=== PATIENT | female | born 1960 | race Caucasian/White ===

== ENCOUNTER 2020-12-03 14:18 | Emergency (ER) | payer OTHER, SELFPAY ==
[2020-12-03 15:11] LABS: Absolute Lymphocytes (CBC) 2.8 K/uL (0.7-4.9); Basophils % 0.8 % (0-1.3); Hematocrit 44.5 % (36.0-45.0); Lymphocytes % 29.2 % (15.3-44.8); MPV 8.7 fL (7.6-11.3); RBC Red Blood Cell Count 5.18 M/uL (3.86-4.86)
[2020-12-03 15:13] LABS: Protime INR 0.97
[2020-12-03 15:23] LABS: ALT/SGPT 33 U/L (12-78); AST/SGOT 20 U/L (15-37); Albumin 3.3 g/dL (3.4-5.0); Alkaline Phosphatase 94 U/L (45-117); BUN Blood Urea Nitrogen 15 mg/dL (7-18); Bicarbonate 31 mmol/L (21-32); Bilirubin Direct 0.1 mg/dL (0-0.2); Bilirubin Total 0.3 mg/dL (0.2-1.0); Glucose Level 120 mg/dL (74-106); Lipase 87 U/L (73-393); Magnesium 1.8 mg/dL (1.8-2.4); Potassium 3.8 mmol/L (3.5-5.1); Protein, Total 7.3 g/dL (6.4-8.2); Sodium Level 138 mmol/L (136-145); Troponin (Emerg Dept Use Only) < 0.02 ng/mL (0.0-0.045)
--- NOTE | 2020-12-03 15:29 | RAD REPORT ---
EXAM DESCRIPTION: CT - Ct Stroke Brain Wo Cont - 12/03/2020 2:41 pm CLINICAL HISTORY: VISUAL DISTURBANCES, acute CVA COMPARISON: <Comparisons> TECHNIQUE: Axial 5 millimeter thick images of the head were obtained without IV contrast. All CT scans are performed using dose optimization technique as appropriate and may include automated exposure control or mA/KV adjustment according to patient size. FINDINGS: No intracranial hemorrhage, mass, or cerebral edema. No acute infarction identifiable. No extra-axial fluid collections. Leon matter-white matter differentiation is preserved.Ventricles are normal. No globe or orbital content abnormality seen. Visualized portions of the mastoid air cells, paranasal sinuses, and orbits are unremarkable. Images were only initially available in the exception folder. This precludes generating intermediate report. Images were reviewed and findings telephoned to Dr. Rosas 1436 hours. IMPRESSION: No CT evidence of acute intracranial process.
--- NOTE | 2020-12-03 15:35 | RAD REPORT ---
EXAM DESCRIPTION: RAD - Chest Single View - 12/03/2020 3:04 pm CLINICAL HISTORY: cva, Stroke protocol chest film COMPARISON: None TECHNIQUE: AP portable chest image was obtained 12/03/2020 3:04 pm . FINDINGS: Detail is limited due to portable technique and very large body habitus. No focal lung par enchymal process seen. Heart and vasculature are normal. No measurable pleural effusion and no pneumo thorax. No acute bony abnormality seen. No acute aortic findings suspected. IMPRESSION: No acute cardiopulmonary process.
--- NOTE | 2020-12-03 16:35 | RAD REPORT ---
EXAM DESCRIPTION: MRI - MRA Head Wo Cont - 12/03/2020 4:23 pm CLINICAL HISTORY: VISUAL DISTURBANCES CVA COMPARISON: No comparisons FINDINGS: 3D noncontrast [id number] MR angiography of the [place] was performed. No aneurysm, flow-limiting stenosis or vascular malformation is seen. Forward flow seen in right ness nant vertebral arteries. Distal right vertebral artery is small is a normal variant. The MRA examinat ion did extend to the origin of the internal carotid arteries. There is tortuosity of the bilateral I Az but no dissection, stenosis or suspicious finding. Ophthalmic arteries are too small for MRA resolution. There is no focal ICA abnormality in the expect ed origin of the ophthalmic arteries. The visualized dural venous sinuses appear patent. Right transverse sinus is dominant. IMPRESSION: MRA head examination as detailed above shows no significant or suspicious finding.
--- NOTE | 2020-12-03 17:17 | ER ---
Nurse's Notes [facility] [place] Name: Krsityn Porter Age: 60 yrs Sex: Female : 1960 Arrival Date: 12/03/2020 Time: 14:19 Bed 17 Private MD: Diagnosis: Transient cerebral ischemic attack, unspecified;Transient visual loss, bilateral Presentation: 12/03 14:40 Chief complaint: Patient states: I was in the bathroom and I can't see, like I see but ca1 I can't see the periphery. Now, I can't see my ride side. 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 Denies HX of Stroke. VAN Negative. No slurring of speech. No facial droop. 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 An acute neurological deficit is present. The charge nurse has been notified. The patient has been moved to a treatment area. Pre-hospital glucose is not applicable to this patient. Onset of symptoms was December 03, 2020 at 14:20. 14:40 Acuity: LACI 2 ca1 14:42 Coronavirus screen: Client denies travel out of the [place] in the last 14 days. At this jl7 time, the client does not indicate any symptoms associated with coronavirus-19. Ebola Screen: No symptoms or risks identified at this time. Initial Sepsis Screen: Does the patient meet any 2 criteria? No. Patient's initial sepsis screen is negative. Does the patient have a suspected source of infection? No. Patient's initial sepsis screen is negative. Risk Assessment: Do you want to hurt yourself or someone else? Patient reports no desire to harm self or others. 14:42 Method Of Arrival: Wheelchair jl7 Triage Assessment: 14:40 The onset of the patients symptoms was December 03, 2020 at 14:20. General: Appears in no ca1 apparent distress. comfortable, Behavior is calm, cooperative, appropriate for age. Pain: Denies pain. Neuro: Reports sudden loss of vision. Stroke Activation: Symptom onset < 3 hours Physician: Stroke Attending; Name: ; Notified At: ; Arrived At: Physician: Chief Stroke Resident; Name: ; Notified At: ; Arrived At: Physician: Stroke Resident; Name: ; Notified At: ; Arrived At: Physician: ED Attending; Name: ; Notified At: ; Arrived At: Physician: ED Resident; Name: ; Notified At: ; Arrived At: Historical: - Allergies: 14:41 No Known Allergies; jl7 - PMHx: 14:41 Hypertensive disorder; jl7 - Immunization history:: Client reports receiving the 2nd dose of the Covid vaccine, Client reports receiving the 1st dose of the Covid vaccine, Flu vaccine is not up to date. - Social history:: Smoking status: Patient denies any tobacco usage or history of. Screenin:37 Abuse screen: Denies threats or abuse. Denies injuries from another. Tuberculosis jl7 screening: No symptoms or risk factors identified. Fall Risk IV access (20 points). Total [place] Fall Scale indicates No Risk (0-24 pts). 14:39 Nutritional screening: No deficits noted. jl7 Assessment: 14:39 VAN Scoring: Arm Drift: Patients demonstrates NO arm weakness. Patient is VAN Negative. jl7 The patient has not been NPO before screening. The patient is currently on the following diet: Home The patient is alert, and able to follow commands. The patient does not exhibit slurred or garbled speech. The patient is not exhibiting difficulty speaking. The patient does not exhibit difficulty understanding words. The patient is able to swallow own secretions with no drooling or need for suction. Patient tolerated one teaspoon of water. No drooling, immediate coughing, gurgling, or clearing of the throat was noted. The patient tolerated 90mL of water. No drooling, immediate coughing, gurgling, or clearing of the throat was noted. The patient passed the bedside swallow screening. Oral medications may be given as ordered. Contact Physician for further diet orders. Provider notified of bedside swallow screening results: Luis E Rosas MD. 14:39 General: Appears in no apparent distress. comfortable, Behavior is calm, cooperative. rb3 Pain: Complains of pain in headache Pain currently is 2 out of 10 on a pain scale. Neuro: Level of Consciousness is awake, alert, obeys commands, Oriented to person, place, time, situation, Reports dizziness, headache in left loss peripheral vision in the right eye. Vision improved once arriving at the hospital. Neuro: [place] are equal bilaterally Moves all extremities. Gait is steady, Speech is normal, Facial symmetry appears normal, Pupils are PERRLA. Cardiovascular: Patient's skin is warm and dry. Respiratory: Airway is patent Respiratory effort is even, unlabored, Respiratory pattern is regular, symmetrical. GI: Reports nausea. : No signs and/or symptoms were reported regarding the genitourinary system. Musculoskeletal: Range of motion: intact in all extremities. 15:19 T-PA (Activase) Screening: Contraindications: Rapidly improving condition or minor jl7 deficit: Yes. 15:28 Reassessment: Went to MRI. rb3 16:00 Reassessment: Patient appears in no apparent distress at this time. Patient and/or rb3 family updated on plan of care and expected duration. Pain level reassessed. Patient is alert, oriented x 3, equal unlabored respirations, skin warm/dry/pink. Vital Signs: 14:40 BP 159 / 95; Pulse 96; Resp 16 S; Temp 97.6(TE); Pulse Ox 96% on R/A; Weight 120.2 kg ca1 (R); Height 5 ft. 5 in. (165.10 cm) (R); Pain 0/10; 15:13 BP 157 / 99; Pulse 99; Resp 17; Pulse Ox 95% on R/A; mh5 15:28 rb3 16:28 BP 113 / 72; Pulse 92; Resp 17; Pulse Ox 95% on R/A; mh5 17:28 BP 110 / 72; Pulse 88; Resp 17; Pulse Ox 97% on R/A; rb3 14:40 Body Mass Index 44.10 (120.20 kg, 165.10 cm) ca1 15:28 Went to MRI rb3 NIH Stroke Scale Scores: 14:39 NIHSS Score: 1 jl7 ED Course: 14:19 Patient arrived in ED. as 14:23 Luis E Rosas MD is Attending Physician. tw4 14:25 Shasta Painter, RN is Primary Nurse. rb3 14:37 Patient has correct armband on for positive identification. Bed in low position. Call jl7 light in reach. Side rails up X 1. quality assurance monitor body on. Pulse ox on. NIBP on. 14:37 EKG done, by ED staff, reviewed by Luis E Rosas MD. jl7 14:40 CT Stroke Brain w/o Contrast In Process Unspecified. EDMS 14:40 Missed attempt(s): 20 gauge in left antecubital area. Bleeding controlled, band aid rb3 applied, catheter tip intact. 14:42 Arm band placed on right wrist. jl7 14:43 Missed attempt(s): 22 gauge in left forearm. Bleeding controlled, band aid applied, rb3 catheter tip intact. 14:47 Triage completed. ca1 15:04 Stroke CXR 1 View In Process Unspecified. EDMS 15:10 CBC with Automated Diff Sent. mh5 15:10 Liver (Hepatic) Function Sent. mh5 15:10 Basic Metabolic Panel Sent. mh5 15:10 Basic Metabolic Panel Sent. mh5 15:10 CBC with Diff Sent. mh5 15:10 Hepatic Function Sent. mh5 15:11 Lipase Sent. mh5 15:11 Magnesium Sent. mh5 15:11 Protime (+inr) Sent. mh5 15:11 Ptt, Activated Sent. mh5 15:11 Troponin (emerg Dept Use Only) Sent. mh5 15:12 Placed in gown. Side rails up X2. Adult w/ patient. Warm blanket given. mh5 15:12 Missed attempt(s): 22 gauge in left forearm. mh5 15:19 Inserted saline lock: 22 gauge in left forearm, using aseptic technique. jl7 16:23 MRA Head Wo Cont In Process Unspecified. EDMS 17:16 Cezar Christiansen MD is Referral Physician. tw4 17:29 No provider procedures requiring assistance completed. IV discontinued, intact, rb3 bleeding controlled, No redness/swelling at site. Pressure dressing applied. Administered Medications: 17:20 Drug: Aspirin Chewable Tablet 324 mg Route: PO; rb3 17:28 Follow up: Response: Medication administered at discharge. rb3 17:20 Drug: PlaVIX (clopidogrel) 75 mg Route: PO; rb3 17:28 Follow up: Response: Medication administered at discharge. rb3 17:20 Drug: foLIC Acid 1 mg Route: PO; rb3 17:27 Follow up: Response: Medication administered at discharge. rb3 Point of Care Testing: Blood Glucose: 15:04 Blood Glucose: 152 mg/dL; rb3 Ranges: Outcome: 17:17 Discharge ordered by . tw4 17:29 Discharged to home ambulatory, with significant other. rb3 17:29 Condition: stable 17:29 Discharge instructions given to patient, Instructed on discharge instructions, follow up and referral plans. medication usage, Demonstrated understanding of instructions, follow-up care, medications, Prescriptions given X 1. 17:29 Patient left the ED. rb3 NIH Stroke Scale - NIH Stroke Score Date: 12/03/2020 Time: 14:39 Total Score = 1 1a. Level of Consciousness (LOC) - 0(Alert) 1b. Level of Consciousness (LOC) (Month \T\ Age) - 0(Both) 1c. LOC Commands (Open \T\ Closes Eyes/Forecast Analyst) - 0(Both) 2. Best Gaze (Lateral Gaze Paresis) - 0(Normal) 3. Visual Field Loss - 1(Partial hemianopia) 4. Facial Palsy - 0(Normal) 5a. Left Arm: Motor (10-second hold) - 0(No drift) 5b. Right Arm: Motor (10-second hold) - 0(No drift) 6a. Left Leg: Motor (5-second hold - always test supine) - 0(No drift) 6b. Right Leg: Motor (5-second hold - always test supine) - 0(No drift) 7. Limb Ataxia (finger/nose \T\ heel/rivera - test with eyes open) - 0(Absent) 8. Sensory Loss (pinprick arms/legs/face) - 0(Normal) 9. Best Language: Aphasia (description/naming/reading) - 0(No aphasia) 10. Dysarthria (speech clarity - read or repeat words) - 0(Normal) 11. Extinction and Inattention (visual/tactile/auditory/spatial/personal) - 0(No abnormality) Initials: jl7 Signatures: Dispatcher [employer] EDMS Abigail Lynn Maria 5 Miguel A Barber RN RN jl7 Luis E Rosas MD MD tw4 Norma Tafoya RN RN [facility] Shasta Painter RN RN rb3 Corrections: (The following items were deleted from the chart) 14:41 14:37 The patient has not been NPO before screening. The patient is currently jl7 on the following diet: home The patient is alert, able to follow commands. The patient does not exhibit slurred or garbled speech The patient is not exhibiting difficulty speaking. The patient does not exhibit difficulty understanding words. The patient is able to swallow own secretions with no drooling or need for suction. Patient tolerated one teaspoon of water. No drooling, immediate coughing, gurgling, or clearing of the throat was noted. The patient tolerated 90mL of water. No drooling, immediate coughing, gurgling, or clearing of the throat was noted. The patient passed the bedside swallow screening. Oral medications may be given as ordered. Contact Physician for further diet orders. Provider notified of bedside swallow screening results: Luis E Rosas MD [facility] 14:37 Nutritional screening: No deficits noted. [place] [id number] 14:37 NIHSS Score: 1 [place] [id number] 14 14:41 PMHx: Hypothyroidism; [place] [address] 16:23 16:02 In radiology for Brain Wo Cont+MRI.RAD.BRZ. EDMS EDMS
--- NOTE | 2020-12-03 17:17 | EDPHYS ---
Physician Documentation [facility] Name: Kristyn Porter Age: 60 yrs Sex: Female : 1960 Arrival Date: 12/03/2020 Time: 14:19 Bed 17 Private MD: ED Physician Luis E Rosas HPI: 12/03 15:17 This 60 yrs old Female presents to ER via Wheelchair with complaints of Loss tw4 Of Vision. 15:17 The patient's problem is reported as visual difficulty, decreased visual field. Onset: tw4 The symptoms/episode began/occurred just prior to arrival, today. Duration: This was a single incident. Context: the episode(s) was witnessed, by family, , symptoms became apparent upon waking, occurred at home, occurred while the patient was standing. The symptoms are alleviated by nothing. The symptoms are aggravated by nothing. Severity of symptoms: At their worst the symptoms were moderate in the emergency department the symptoms have improved markedly. Patient's baseline: Neuro: alert and fully oriented, Motor: no deficits, Ambulation: walks without assistance, Speech: normal. The patient has not experienced similar symptoms in the past. Historical: - Allergies: 14:41 No Known Allergies; jl7 - PMHx: 14:41 Hypertensive disorder; jl7 - Immunization history:: Client reports receiving the 2nd dose of the Covid vaccine, Client reports receiving the 1st dose of the Covid vaccine, Flu vaccine is not up to date. - Social history:: Smoking status: Patient denies any tobacco usage or history of. ROS: 15:17 Constitutional: Negative for fever, chills, and weight loss. tw4 15:17 Neck: Negative for injury, pain, and swelling, Cardiovascular: Negative for chest pain, palpitations, and edema, Respiratory: Negative for shortness of breath, cough, wheezing, and pleuritic chest pain, Abdomen/GI: Negative for abdominal pain, nausea, vomiting, diarrhea, and constipation, Back: Negative for injury and pain, MS/Extremity: Negative for injury and deformity, Skin: Negative for injury, rash, and discoloration. 15:17 Eyes: Positive for vision loss. Exam: 15:17 Radiologist reports: no acute findings tw4 15:17 Constitutional: This is a well developed, well nourished patient who is awake, alert, and in no acute distress. Head/Face: Normocephalic, atraumatic. Chest/axilla: Normal chest wall appearance and motion. Nontender with no deformity. No lesions are appreciated. Cardiovascular: Regular rate and rhythm with a normal S1 and S2. No gallops, murmurs, or rubs. Normal PMI, no JVD. No pulse deficits. Respiratory: Lungs have equal breath sounds bilaterally, clear to auscultation and percussion. No rales, rhonchi or wheezes noted. No increased work of breathing, no retractions or nasal flaring. Abdomen/GI: Soft, non-tender, with normal bowel sounds. No distension or tympany. No guarding or rebound. No evidence of tenderness throughout. Back: No spinal tenderness. No costovertebral tenderness. Full range of motion. Skin: Warm, dry with normal turgor. Normal color with no rashes, no lesions, and no evidence of cellulitis. MS/ Extremity: Pulses equal, no cyanosis. Neurovascular intact. Full, normal range of motion. Vital Signs: 14:40 BP 159 / 95; Pulse 96; Resp 16 S; Temp 97.6(TE); Pulse Ox 96% on R/A; Weight 120.2 kg ca1 (R); Height 5 ft. 5 in. (165.10 cm) (R); Pain 0/10; 15:13 BP 157 / 99; Pulse 99; Resp 17; Pulse Ox 95% on R/A; mh5 15:28 rb3 16:28 BP 113 / 72; Pulse 92; Resp 17; Pulse Ox 95% on R/A; mh5 17:28 BP 110 / 72; Pulse 88; Resp 17; Pulse Ox 97% on R/A; rb3 14:40 Body Mass Index 44.10 (120.20 kg, 165.10 cm) ca1 15:28 Went to MRI rb3 NIH Stroke Scale Scores: 14:39 NIHSS Score: 1 jl7 MDM: 17:17 Patient medically screened. tw4 12/04 07:21 Differential diagnosis: CVA, TIA. Data reviewed: vital signs, nurses notes. Data tw4 interpreted: Pulse oximetry: Interpretation: normal. Counseling: I had a detailed discussion with the patient and/or guardian regarding: the historical points, exam findings, and any diagnostic results supporting the discharge/admit diagnosis. Special discussion: I discussed with the patient/guardian in detail that at this point there is no indication for admission to the hospital. It is understood, however, that if the symptoms persist or worsen the patient needs to return immediately for re-evaluation. 12/03 14:38 Order name: Basic Metabolic Panel 12/03 14:38 Order name: CBC with Diff 12/03 14:38 Order name: Hepatic Function 12/03 14:38 Order name: Lipase; Complete Time: 16:49 12/03 14:38 Order name: Magnesium; Complete Time: 16:49 12/03 16:50 Interpretation: Within normal limits: MG 1.8. 12/03 14:38 Order name: Protime (+inr); Complete Time: 16:49 12/03 16:50 Interpretation: Within normal limits: PT 11.2; INR <p>0.97</p>. 12/03 14:38 Order name: Ptt, Activated; Complete Time: 16:49 12/03 16:50 Interpretation: Within normal limits: PTT 25.9. 12/03 14:38 Order name: Troponin (emerg Dept Use Only); Complete Time: 16:49 12/03 16:50 Interpretation: Within normal limits: TROPED < 0.02. 12/03 14:38 Order name: CT Stroke Brain w/o Contrast; Complete Time: 16:49 12/03 14:38 Order name: Stroke CXR 1 View; Complete Time: 16:49 12/03 14:38 Order name: Basic Metabolic Panel; Complete Time: 16:49 ED12/03 16:50 Interpretation: Normal except: GLUC 120; GFR 67. 12/03 14:38 Order name: CBC with Automated Diff; Complete Time: 16:49 12/03 16:50 Interpretation: Normal except: RBC 5.18. 12/03 14:38 Order name: Liver (Hepatic) Function; Complete Time: 16:49 12/03 16:50 Interpretation: Abnormal: ALB 3.3; GLOB 4.0. 12/03 15:17 Order name: Glucose, Ancillary Testing; Complete Time: 16:49 12/03 14:38 Order name: EKG; Complete Time: 14:39 12/03 14:38 Order name: Accucheck; Complete Time: 15:10 12/03 14:38 Order name: Cardiac monitoring; Complete Time: 14:56 12/03 14:38 Order name: EKG - Nurse/Tech; Complete Time: 14:56 12/03 14:38 Order name: IV Saline Lock; Complete Time: 15:19 12/03 14:38 Order name: Labs collected and sent; Complete Time: 14:56 12/03 14:38 Order name: NPO; Complete Time: 14:56 12/03 14:38 Order name: O2 Per Protocol; Complete Time: 14:56 12/03 14:38 Order name: O2 Sat Monitoring; Complete Time: 14:56 12/03 14:38 Order name: Stroke Swallow Screen; Complete Time: 14:56 12/03 16:23 Order name: MRA Head Wo Cont; Complete Time: 16:49 EDMS EC/10 15:17 Rate is 85 beats/min. Rhythm is regular. QRS [place] is Normal. RI interval is normal. QRS tw4 interval is normal. QT interval is normal. No Q waves. T waves are Normal. No ST changes noted. Clinical impression: Normal ECG. Interpreted by me. Reviewed by me. Administered Medications: 17:20 Drug: Aspirin Chewable Tablet 324 mg Route: PO; rb3 17:28 Follow up: Response: Medication administered at discharge. rb3 17:20 Drug: PlaVIX (clopidogrel) 75 mg Route: PO; rb3 17:28 Follow up: Response: Medication administered at discharge. rb3 17:20 Drug: foLIC Acid 1 mg Route: PO; rb3 17:27 Follow up: Response: Medication administered at discharge. rb3 Point of Care Testing: Blood Glucose: 15:04 Blood Glucose: 152 mg/dL; rb3 Ranges: Critical Glucose Levels:Adult <50 mg/dl or >400 mg/dl <40 mg/dl or >180 mg/dl Disposition Summary: 12/03/20 17:17 Discharge Ordered Location: Home tw4 Problem: new tw4 Symptoms: have improved tw4 Condition: Stable tw4 Diagnosis - Transient cerebral ischemic attack, unspecified tw4 - Transient visual loss, bilateral tw4 Followup: tw4 - With: Cezar Christiansen MD - When: 1 - 2 days - Reason: Recheck today's complaints, Continuance of care, Re-evaluation by your physician Discharge Instructions: - Discharge Summary Sheet tw4 - Visual Disturbances tw4 - Amaurosis Fugax tw4 - Transient Ischemic Attack, [id number] tw4 - Aspirin and Your Heart tw4 Forms: - Medication Reconciliation Form tw4 - Thank You Letter tw4 - Antibiotic Education tw4 - Prescription Opioid Use tw4 Prescriptions: - Plavix 75 mg Oral Tablet - take 1 tablet by ORAL route once daily; 20 tablet; Refills: 0, Product tw4 Selection Permitted NIH Stroke Scale - NIH Stroke Score Date: 12/03/2020 Time: 14:39 Total Score = 1 1a. Level of Consciousness (LOC) - 0(Alert) 1b. Level of Consciousness (LOC) (Month \T\ Age) - 0(Both) 1c. LOC Commands (Open \T\ Closes Eyes/Apartment Leasing Consultant) - 0(Both) 2. Best Gaze (Lateral Gaze Paresis) - 0(Normal) 3. Visual Field Loss - 1(Partial hemianopia) 4. Facial Palsy - 0(Normal) 5a. Left Arm: Motor (10-second hold) - 0(No drift) 5b. Right Arm: Motor (10-second hold) - 0(No drift) 6a. Left Leg: Motor (5-second hold - always test supine) - 0(No drift) 6b. Right Leg: Motor (5-second hold - always test supine) - 0(No drift) 7. Limb Ataxia (finger/nose \T\ heel/rivera - test with eyes open) - 0(Absent) 8. Sensory Loss (pinprick arms/legs/face) - 0(Normal) 9. Best Language: Aphasia (description/naming/reading) - 0(No aphasia) 10. Dysarthria (speech clarity - read or repeat words) - 0(Normal) 11. Extinction and Inattention (visual/tactile/auditory/spatial/personal) - 0(No abnormality) Initials: jl7 Signatures: Dispatcher [employer] EDMiguel A Whittington RN RN jl7 Luis E Rosas MD MD tw4 Norma Tafoya RN RN ca1 Shasta Painter RN RN rb3 Corrections: (The following items were deleted from the chart) 14:42 14:41 PMHx: Hypothyroidism; jl7 jl7 16:23 14:59 Brain Wo Cont+MRI.RAD.BRZ ordered. EDMS EDMS
[2020-12-03 17:36] VITALS: TEMP 97.6
[2020-12-03] MEDS ORDERED: ASPIRIN 81 MG CHEWABLE TABLET ONE (17:37)
[2020-12-03] MEDS ORDERED: CLOPIDOGREL 75 MG TABLET ONE (17:38)
[2020-12-03] MEDS ORDERED: FOLIC ACID 1 MG TABLET ONE (17:38)
[2020-12-03 17:41] VITALS: BP 110/72; O2SAT 97
--- NOTE | 2020-12-05 16:11 | EKG ---
Test Date: 2020-12-03 Test Time: 14:36:09 [employer] [place]: TIERRA MEASUREMENT RESULTS: Intervals: Rate: 85 NV: 158 QRSD: 78 QT: 330 QTc: 392 [place]: P: 42 NV: 158 QRS: 12 T: 19 INTERPRETIVE STATEMENTS: Normal sinus rhythm Normal ECG Compared to ECG 01/07/2009 12:51:03 Sinus bradycardia no longer present T-wave abnormality no longer present Electronically Signed On 12-05-20 16:05:14 CDT by Arden Wen
== END 2020-12-03 17:29 | disposition home or self-care (01) ==
LOC: ER 14:18
DX: G45.9 Transient cerebral ischemic attack, unspecified (principal); I10 Essential (primary) hypertension; R29.701 NIHSS score 1
CPT/HCPCS: 36415; 70450; 70544; 71045; 80048; 80076; 82947; 83690; 83735; 84484; 85025; 85610; 85730; 93005; 99285

== ENCOUNTER → 2023-07-13 | Emergency (ER) | payer OTHER ==
[~2023-07-13] MED LIST: DIPHENHYDRAMINE 50 MG/ML VIAL ONE; METOCLOPRAMIDE 10 MG/2mL INJ ONE; NA CHLORIDE 0.9% 500 ML ONE
[2023-07-13 23:46] LABS: Absolute Lymphocytes (CBC) 2.8 K/uL (0.7-4.9); Hematocrit 38.9 % (36.0-45.0); Lymphocytes % 27.9 % (15.3-44.8); Platelets 237 thou/uL (152-406); RBC Red Blood Cell Count 4.52 M/uL (3.86-4.86)
[2023-07-14 00:05] LABS: Albumin 3.3 g/dL (3.4-5.0); Bilirubin Total 0.3 mg/dL (0.2-1.0); Potassium 4.1 mEq/L (3.5-5.1); Troponin High Sensitivity 5.9 pg/mL (<58.9)
--- NOTE | 2023-07-14 00:27 | EDPHYS ---
Physician Documentation [facility] Name: Kristyn Porter Age: 62 yrs Sex: Female : 1960 Arrival Date: 07/13/2023 Time: 22:47 Bed 14 Private MD: ED Physician Omer Chin HPI: 07/13 23:11 This 62 yrs old Female presents to ER via Ambulatory with complaints of High ec2 Blood Pressure. 23:11 Patient arrives today for evaluation of elevated blood pressure. Patient reports that ec2 she has noted elevated blood pressures with systolics of 150s to 180s. Patient reports some occasional headaches. Denies any chest pain, denies difficulty breathing, denies any other concerns. Patient with history of hypertension, on losartan.. Historical: - Allergies: 23:00 surgical tape; tl4 - Home Meds: 23:01 Omeprazole Oral [Active]; progesterone (bulk) [Active]; losartan oral [Active]; tl4 meloxicam oral [Active]; Estradiol Oral [Active]; clopidogrel 75 mg oral tablet 1 tab daily [Active]; metoprolol succinate 50 mg oral Tablet, Extended Release 24 hr 1 tab daily [Active]; metformin 500 mg oral Tablet, Extended Release 24 hr 1 tab daily [Active]; aspirin 81 mg Oral tablet,chewable 1 tab daily [Active]; melatonin 10 mg Oral tablet 1 tab every day at bedtime [Active]; folic acid 800 mcg Oral tablet 1 tab daily [Active]; - PMHx: 23:00 Hypertensive disorder; tl4 23:01 Diabetes mellitus; Atrial fibrillation; tl4 - Immunization history:: Adult Immunizations unknown. - Social history:: Smoking status: Patient denies any tobacco usage or history of. ROS: 23:11 Constitutional: as per hpi ec2 Exam: 23:11 Constitutional: GEN: NAD Head: atraumatic Eyes: EOMI Ears: External ears are ec2 normal. CV: regular rate LUNGS: no respiratory distress ABD: non-distended SKIN: no evidence of rashes MSK: no evidence of trauma NEURO: moves all extremities equally, cranial nerves II through XII intact, strength intact, no pronator drift, normal [id number]. Vital Signs: 22:55 BP 191 / 102; Pulse 74; Resp 16; Temp 97.7; Pulse Ox 100% ; Weight 111.13 kg; Height 5 tl4 ft. 6 in. ; Pain 4/10; 23:38 BP 163 / 82; Pain 0/10; tm6 07/14 00:03 BP 166 / 93; Pulse 70; Pulse Ox 100% on R/A; tm6 00:08 BP 149 / 75; Pulse 66; ec2 00:43 BP 149 / 75; Pulse 68; Resp 20; Temp 98(TE); Pulse Ox 98% on R/A; Pain 0/10; tm6 07/13 22:55 Body Mass Index 39.54 (111.13 kg, 167.64 cm) tl4 07/13 22:55 Pain Scale: Adult tl4 23:38 Pain Scale: Adult tm6 00:43 Pain Scale: Adult tm6 MDM: 07/13 23:10 Patient medically screened. ec2 23:11 Data reviewed: vital signs, nurses notes. ED course: Patient arrives today for ec2 evaluation of headache and elevated blood pressure. Semination remarkable for neuro intact individual is otherwise in no acute distress. Will obtain lab work and CT imaging. Currently evaluating for intracranial mass, organ dysfunction, ACS.. 23:25 ED course: EKG independently reviewed and interpreted by me, shows normal sinus rhythm, ec2 rate of 73, no acute ST segment elevations, PVC noted, intervals appropriate.. 07/14 00:08 ED course: Metabolic profile reassuring with some diminished renal function noted, ec2 patient otherwise making urine appropriately. CBC reassuring. Troponin within normal ranges. Pending CT imaging. . 00:26 ED course: CT imaging with no acute intracranial process noted, volume loss identified, ec2 can follow-up outpatient for this, patient without any focal neurologic deficit to suggest stroke. Will discharge home. Return precautions given.. 07/13 23:10 Order name: CBC with Diff; Complete Time: 00:07 ec2 07/13 23:10 Order name: CMP; Complete Time: 00:07 ec2 07/13 23:10 Order name: Troponin High Sensitivity; Complete Time: 00:07 ec2 07/13 23:11 Order name: CT Head Brain wo Cont ec2 07/13 23:10 Order name: EKG; Complete Time: 23:11 ec2 07/13 23:10 Order name: EKG - Nurse/Tech; Complete Time: 23:31 ec2 Administered Medications: 00:02 Drug: NS 0.9% IV 500 ml IV at bolus once Route: IV; Rate: bolus; Site: right tm6 antecubital; 00:02 Drug: metoCLOPramide IVP 10 mg IVP once; over 1 to 2 minutes Route: IVP; Site: right tm6 antecubital; 00:02 Drug: diphenhydrAMINE IVP 25 mg IVP once Route: IVP; Site: right antecubital; tm6 Disposition Summary: 07/14/23 00:26 Discharge Ordered Notes: Location: Home ec2 Condition: Stable ec2 Diagnosis - Headache ec2 Followup: ec2 - With: Private Physician - When: - Reason: Recheck today's complaints Discharge Instructions: - Discharge Summary Sheet ec2 - General Headache Without Cause ec2 Forms: - Medication Reconciliation Form ec2 - Thank You Letter ec2 - Antibiotic Education ec2 - Prescription Opioid Use ec2 - Patient Portal Instructions ec2 - Leadership Thank You Letter ec2 Signatures: Dispatcher [employer] Omer Irene MD MD ec2 Rebeca Tuttle RN RN tm6 Avelino Lai RN RN tl4 Corrections: (The following items were deleted from the chart) 07/13 23:09 23:00 Allergies: No Known Allergies; tl4 tl4
--- NOTE | 2023-07-14 00:27 | ER ---
Nurse's Notes [facility] Name: Kristyn Porter Age: 62 yrs Sex: Female : 1960 Arrival Date: 07/13/2023 Time: 22:47 Bed 14 Private MD: Diagnosis: Headache Presentation: 07/13 22:55 Chief complaint: Patient states: Pt c/o ongoing "nagging" headache x 8 days. No relief tl4 with OTC meds. Pt states her BP has been increased tonight. Pt currently denies dizziness, nausea, CP, SOB. Coronavirus screen: At this time, the client does not indicate any symptoms associated with coronavirus-19. Ebola Screen: No symptoms or risks identified at this time. Initial Sepsis Screen: Does the patient meet any 2 criteria? No. Patient's initial sepsis screen is negative. Does the patient have a suspected source of infection? No. Patient's initial sepsis screen is negative. Risk Assessment: Do you want to hurt yourself or someone else? Patient reports no desire to harm self or others. Onset of symptoms was July 05, 2023. 22:55 Method Of Arrival: Ambulatory tl4 22:55 Acuity: LACI 3 tl4 Triage Assessment: 23:09 General: Appears in no apparent distress. Behavior is calm, cooperative. Pain: tl4 Complains of pain in head. EENT: No deficits noted. No signs and/or symptoms were reported regarding the EENT system. Neuro: Reports headache Denies weakness blurred vision dizziness, numbness. Cardiovascular: No deficits noted. Denies chest pain, lightheadedness, palpitations. Respiratory: No deficits noted. Denies cough, shortness of breath. GI: No deficits noted. No signs and/or symptoms were reported involving the gastrointestinal system. : No deficits noted. No signs and/or symptoms were reported regarding the genitourinary system. Derm: No deficits noted. No signs and/or symptoms reported regarding the dermatologic system. Musculoskeletal: No deficits noted. No signs and/or symptoms reported regarding the musculoskeletal system. Historical: - Allergies: 23:00 surgical tape; tl4 - Home Meds: 23:01 Omeprazole Oral [Active]; progesterone (bulk) [Active]; losartan oral [Active]; tl4 meloxicam oral [Active]; Estradiol Oral [Active]; clopidogrel 75 mg oral tablet 1 tab daily [Active]; metoprolol succinate 50 mg oral Tablet, Extended Release 24 hr 1 tab daily [Active]; metformin 500 mg oral Tablet, Extended Release 24 hr 1 tab daily [Active]; aspirin 81 mg Oral tablet,chewable 1 tab daily [Active]; melatonin 10 mg Oral tablet 1 tab every day at bedtime [Active]; folic acid 800 mcg Oral tablet 1 tab daily [Active]; - PMHx: 23:00 Hypertensive disorder; tl4 23:01 Diabetes mellitus; Atrial fibrillation; tl4 - Immunization history:: Adult Immunizations unknown. - Social history:: Smoking status: Patient denies any tobacco usage or history of. Screenin:38 [facility] ED Fall Risk Assessment (Adult) History of falling in the last 3 months, tm6 including since admission No falls in past 3 months (0 pts) Confusion or Disorientation No (0 pts) Intoxicated or Sedated No (0 pts) Impaired Gait No (0 pts) Mobility Assist Device Used No (0 pt) Altered Elimination No (0 pt) Score/Fall Risk Level 0 - 2 = Low Risk. Abuse screen: Denies threats or abuse. Denies injuries from another. Nutritional screening: No deficits noted. Tuberculosis screening: No symptoms or risk factors identified. Assessment: 23:38 General: Appears in no apparent distress. Behavior is calm, cooperative. Pain: Denies tm6 pain. Neuro: Level of Consciousness is awake, alert, obeys commands, Oriented to person, place, time, situation. Neuro: Reports headache. Cardiovascular: Capillary refill < 3 seconds Patient's skin is warm and dry. Rhythm is regular. Respiratory: Airway is patent Respiratory effort is even, unlabored, Respiratory pattern is regular, symmetrical. GI: Abdomen is round non-distended. : No signs and/or symptoms were reported regarding the genitourinary system. EENT: No signs and/or symptoms were reported regarding the EENT system. Derm: No signs and/or symptoms reported regarding the dermatologic system. Musculoskeletal: No signs and/or symptoms reported regarding the musculoskeletal system. 07/14 00:42 Reassessment: Patient appears in no apparent distress at this time. No changes from tm6 previously documented assessment. Patient and/or family updated on plan of care and expected duration. Pain level reassessed. Vital Signs: 07/13 22:55 BP 191 / 102; Pulse 74; Resp 16; Temp 97.7; Pulse Ox 100% ; Weight 111.13 kg; Height 5 tl4 ft. 6 in. ; Pain 4/10; 23:38 BP 163 / 82; Pain 0/10; tm6 18 00:03 BP 166 / 93; Pulse 70; Pulse Ox 100% on R/A; tm6 00:08 BP 149 / 75; Pulse 66; ec2 00:43 BP 149 / 75; Pulse 68; Resp 20; Temp 98(TE); Pulse Ox 98% on R/A; Pain 0/10; tm6 07/13 22:55 Body Mass Index 39.54 (111.13 kg, 167.64 cm) tl4 02 22:55 Pain Scale: Adult tl4 23:38 Pain Scale: Adult tm6 00:43 Pain Scale: Adult tm6 ED Course: 07/13 22:50 Patient arrived in ED. tl4 22:52 Omer Chin MD is Attending Physician. ec2 23:00 Triage completed. tl4 23:10 Arm band placed on right wrist. tl4 23:16 Rebeca Tuttle, ANTHONY is Primary Nurse. tm6 23:38 Patient has correct armband on for positive identification. Bed in low position. Call tm6 light in reach. Side rails up X 1. Provided Education on: plan of care. Client placed on continuous cardiac and pulse oximetry monitoring. NIBP monitoring applied. biological technical officer on. Door closed. Noise minimized. 23:38 No provider procedures requiring assistance completed. Inserted saline lock: 20 gauge tm6 in right antecubital area, using aseptic technique. 23:43 CT Head Brain wo Cont In Process Unspecified. EDMS 07/14 00:43 IV discontinued, intact, bleeding controlled, No redness/swelling at site. Pressure tm6 dressing applied. Administered Medications: 00:02 Drug: NS 0.9% IV 500 ml IV at bolus once Route: IV; Rate: bolus; Site: right tm6 antecubital; 00:02 Drug: metoCLOPramide IVP 10 mg IVP once; over 1 to 2 minutes Route: IVP; Site: right tm6 antecubital; 00:02 Drug: diphenhydrAMINE IVP 25 mg IVP once Route: IVP; Site: right antecubital; tm6 Medication: 07/13 23:38 VIS not applicable for this client. tm6 Outcome: 07/14 00:26 Discharge ordered by . ec2 00:43 Discharged to home ambulatory, with family, tm6 00:43 Condition: stable 00:43 Discharge instructions given to patient, family, Instructed on discharge instructions, follow up and referral plans. Demonstrated understanding of instructions, follow-up care, 00:44 Patient left the ED. tm6 Signatures: Dispatcher [employer] EDOmer Jones MD MD ec2 Rebeca Tuttle RN RN tm6 Avelino Lai RN RN tl4 Corrections: (The following items were deleted from the chart) 07/13 23:09 23:00 Allergies: No Known Allergies; tl4 tl4
[2023-07-14 01:00] VITALS: BP 149/75; TEMP 98; O2SAT 98
--- NOTE | 2023-07-15 10:58 | EKG ---
Test Date: 2023-07-13 Test Time: 23:22:06 Kennel Assistant: LUNA MEASUREMENT RESULTS: Intervals: Rate: 73 AK: 170 QRSD: 78 QT: 400 QTc: 440 [place]: P: 25 AK: 170 QRS: 11 T: 20 INTERPRETIVE STATEMENTS: Sinus rhythm with occasional premature ventricular complexes Otherwise normal ECG Compared to ECG 12/03/2020 14:36:09 Ventricular premature complex(es) now present Electronically Signed On 07-15-23 10:56:20 SENIOR GAMEMASTER by Gagan Baig
--- NOTE | 2023-07-15 11:53 | RAD REPORT ---
EXAM DESCRIPTION: CT - Head Brain Wo Cont - 07/14/2023 6:43 am CLINICAL HISTORY: 62 years Female HEADACHE COMPARISON: CT head without contrast dated 12/03/2020 TECHNIQUE: Contiguous axial images of the brain were obtained without the administration of intraven ous contrast.This exam was performed according to our departmental dose-optimization program which in cludes use of Automated Exposure Control, adjustment of the mA and/or kV according to patient size an d/or use of iterative reconstruction technique. DLP: 866 mGy*cm FINDINGS: Brain: No acute intracranial hemorrhage. No extra-axial collection. No mass effect or allegra iation. Mild prominence of the sulci and cisterns. Confluent periventricular and subcortical white matter hypodensity is noted. Ventricles: Within normal limits in size. Globes and orbits: No acute abnormality. Bones: No acute osseous finding Paranasal sinuses: Paranasal sinuses are clear. Mastoid air cells: Well pneumatized. Soft tissues: Within normal limits IMPRESSION: No acute intracranial hemorrhage, hydrocephalus or herniation. Cerebral volume loss and chronic small vessel ischemic changes. Consider MRI brain for further evalua tion. Electronically signed by: Isiah Ballard DO 07/14/2023 12:13 AM SAWMILL HAND Due to temporary technical issues with the PACS/Fluency reporting system, reports are being signed by the in house radiologist without review as a courtesy to ensure prompt reporting. The interpreting r adiologist is fully responsible for the content of the report.
== END ==
LOC: ER 22:47
DX: R51.9 Headache, unspecified (principal); I10 Essential (primary) hypertension; E11.9 Type 2 diabetes mellitus without complications; I48.91 Unspecified atrial fibrillation; Z79.82 Long term (current) use of aspirin; Z91.048 Other nonmedicinal substance allergy status
CPT/HCPCS: 93005; 85025; 36415; 84484; 80053; 70450; J2765; J1200; J7040